=== PATIENT | female | born 1945 | race African-American/Black ===

== ENCOUNTER 2018-11-11 13:01 | Inpatient (IN) | payer MEDICARE, MEDICAID ==
[~2018-11-11] VITALS: Ht 162.6 cm; Wt 49.9 kg
[2018-11-11] VITALS (7 sets, daily range): BP systolic 119–139; BP diastolic 53–71
[2018-11-11] MEDS ORDERED: FERR325T6 PO (13:29)
[2018-11-11] MEDS ORDERED: ATORVASTATIN (13:29)
[2018-11-11] MEDS ORDERED: MEGESTROL (13:29)
[2018-11-11] MEDS ORDERED: FURO20TA4 PO (13:29)
[2018-11-11] MEDS ORDERED: MEMA5TAB15 PO (13:29)
[2018-11-11] MEDS ORDERED: CALC1CAP22 PO (13:29)
[2018-11-11] MEDS ORDERED: TRAM50TA PO (13:29)
[2018-11-11] MEDS ORDERED: MULT-1116 PO (13:29)
[2018-11-11] MEDS ORDERED: METF-815 PO (13:29)
[2018-11-11] MEDS ORDERED: ZOLP5TAB2 PO (13:29)
[2018-11-11] MEDS ORDERED: METO-396 PO (13:29)
[2018-11-11] MEDS ORDERED: POTA10CA42 PO (13:29)
[2018-11-11] MEDS ORDERED: RIVA20TA PO (13:29)
[2018-11-11 14:27] LABS: BASOPHILS % 0.7 % (0.0-2.0); EOSINOPHILS % 1.1 % (0.0-5.0); LYMPHOCYTES % 8.1 % (20.0-50.0); MEAN CORPUSCULAR VOLUME 60.5 fL (81.0-99.0); MEAN PLATELET VOLUME 7.6 fl (7.4-10.4); MONOCYTES % 7.4 % (2.0-8.0); NEUTROPHILS % 82.7 % (40.0-76.0); PLATELET 798 x1000/uL (130-400); RED BLOOD CELL COUNT 3.35 mill/uL (4.2-5.4); RED CELL DISTRIBUTION WIDTH 19.6 % (11.6-14.6)
[2018-11-11 14:32] LABS: HEMATOCRIT. 20.3 % (36.0-48.0)
[2018-11-11 14:33] LABS: CHLORIDE 100 mEq/L (98-107)
[2018-11-11 14:34] LABS: INR 1.1; PARTIAL THROMBOPLASTIN TIME 28.5 sec (23.4-31.0); PROTHROMBIN TIME 11.7 sec (9.6-11.0)
[2018-11-11] MEDS ORDERED: SODIUM CHLORIDE 0.9% 500 ML IV ONE (15:33)
[2018-11-11] MEDS ORDERED: INSULIN REGULAR (HUMULIN R) 300UNITS/3ML SUBCUT ONE (15:45)
[2018-11-11 15:48] LABS: CLARITY URINE TURBID (CLEAR); COLOR URINE YELLOW (YELLOW); KETONES URINE TRACE (NEGATIVE); LEUKOCYTE ESTERASE URINE 3+ (NEGATIVE); NITRITE URINE NEGATIVE (NEGATIVE); OCCULT BLOOD URINE 2+ (NEGATIVE); PROTEIN URINE 1+ (NEGATIVE); SPECIFIC GRAVITY URINE 1.023 (1.005-1.030)
[2018-11-11 15:48] LABS: PLATELET ESTIMATE INCREASED
[2018-11-11] MEDS ORDERED: HYDROMORPHONE HCL/PF 2MG/ML CPJ IV PRN (16:45)
[2018-11-11] MEDS ORDERED: CLONIDINE 0.1MG TABLET PO PRN (16:45)
[2018-11-11] MEDS ORDERED: DEXTROSE 50% WATER 50ML SYRINGE IV PRN (16:45)
[2018-11-11] MEDS ORDERED: DOCUSATE SODIUM 100MG CAPSULE PO PRN (16:45)
[2018-11-11] MEDS ORDERED: ONDANSETRON HCL 4MG/2ML INJ IV PRN (16:45)
[2018-11-11] MEDS ORDERED: ACETAMINOPHEN 325MG TABLET PO PRN (16:45)
[2018-11-11] MEDS: BLOOD SUGAR DIAGNOSTIC STRIP TEST SCH ×3 (17:00→20:29)
[2018-11-11 18:06] LABS: TOTAL IRON BINDING CAPACITY 290 ug/dL (250-450)
[2018-11-11] MEDS: INSULIN LISPRO 100 UNITS/ML SUBCUT SCH ×2 (18:33→20:59)
[2018-11-11] MEDS ORDERED: HYDR1.5C TP (20:08)
[2018-11-12] VITALS (7 sets, daily range): BP systolic 108–136; BP diastolic 56–80
[2018-11-12 01:19] LABS: BASOPHILS % 0.9 % (0.0-2.0); EOSINOPHILS % 3.8 % (0.0-5.0); HEMATOCRIT. 23.7 % (36.0-48.0); HEMOGLOBIN. 7.5 g/dL (12.0-16.0); LYMPHOCYTES % 15.4 % (20.0-50.0); MEAN CORPUSCULAR HEMOGLOBIN 21.1 pg (28.0-32.0); MEAN CORPUSCULAR VOLUME 66.5 fL (81.0-99.0); MEAN PLATELET VOLUME 7.5 fl (7.4-10.4); MONOCYTES % 10.1 % (2.0-8.0); NEUTROPHILS % 69.8 % (40.0-76.0); PLATELET 600 x1000/uL (130-400); RED BLOOD CELL COUNT 3.56 mill/uL (4.2-5.4); RED CELL DISTRIBUTION WIDTH 25.9 % (11.6-14.6)
[2018-11-12 01:52] LABS: INR 1.1; PROTHROMBIN TIME 11.2 sec (9.6-11.0)
[2018-11-12] MEDS: BLOOD SUGAR DIAGNOSTIC STRIP TEST SCH ×4 (06:50→21:16)
[2018-11-12] MEDS: INSULIN LISPRO 100 UNITS/ML SUBCUT SCH ×4 (08:30→21:22)
[2018-11-12 08:52] LABS: BASOPHILS % 1.1 % (0.0-2.0); EOSINOPHILS % 3.1 % (0.0-5.0); HEMATOCRIT. 22.5 % (36.0-48.0); HEMOGLOBIN. 7.2 g/dL (12.0-16.0); LYMPHOCYTES % 10.2 % (20.0-50.0); MEAN CORPUSCULAR HEMOGLOBIN 21.1 pg (28.0-32.0); MEAN CORPUSCULAR VOLUME 65.5 fL (81.0-99.0); MEAN PLATELET VOLUME 7.4 fl (7.4-10.4); MONOCYTES % 8.6 % (2.0-8.0); PLATELET 649 x1000/uL (130-400); RED BLOOD CELL COUNT 3.43 mill/uL (4.2-5.4); RED CELL DISTRIBUTION WIDTH 26.2 % (11.6-14.6)
[2018-11-12 08:56] LABS: CHLORIDE 106 mEq/L (98-107)
[2018-11-12 09:05] LABS: LDL CHOLESTEROL 54 mg/dL (5-100)
[2018-11-12 09:06] LABS: HDL CHOLESTEROL 43 mg/dL (40-59)
[2018-11-12] MEDS: MEMANTINE HCL 5MG TABLET PO SCH (09:39)
[2018-11-12] MEDS: METOPROLOL TARTRATE 25MG TABLET PO SCH ×2 (09:39→21:17)
[2018-11-12] MEDS: CALCIUM CARBONATE 1250MG TABLET (500MG ELEMENTAL CALCIUM) PO SCH (10:36)
[2018-11-12] MEDS: CEFTRIAXONE 1 G PREMIX 50 ML IV SCH (10:37)
[2018-11-12] MEDS: FERROUS SULFATE 325MG TABLET PO SCH ×2 (12:07→16:56)
[2018-11-12] MEDS ORDERED: BISACODYL 10MG SUPP PR NR (12:15)
[2018-11-12 14:49] LABS: FOLIC ACID (FOLATE) SERUM 13.9 ng/mL (>5.38)
[2018-11-12] MEDS: SORBITOL 70% SOLN 30ML PO SCH ×2 (16:08→18:26)
[2018-11-12] MEDS ORDERED: POTASSIUM CHLORIDE 20MEQ/PACKET PO NR (16:45)
[2018-11-12] MEDS: METFORMIN HCL 500MG TABLET PO SCH (16:55)
[2018-11-12] MEDS ORDERED: SORBITOL 70% SOLN 30ML PO SCH (20:00)
[2018-11-12 20:28] LABS: HEMATOCRIT 28.1 % (36.0-48.0); HEMOGLOBIN 8.9 g/dL (12.0-16.0)
[2018-11-12] MEDS: ATORVASTATIN CALCIUM 20MG TABLET PO SCH (21:16)
[2018-11-13] VITALS: BP_SYST 127; BP_SYST 128; BP_DIAS 60; BP_DIAS 73
[2018-11-13 04:00] VITALS: BP 127/73
[2018-11-13] MEDS ORDERED: SORBITOL 70% SOLN 30ML PO SCH (06:00)
[2018-11-13 07:04] LABS: PARTIAL THROMBOPLASTIN TIME 23.8 sec (23.4-31.0); PROTHROMBIN TIME 10.6 sec (9.6-11.0)
[2018-11-13 07:15] LABS: BASOPHILS % 0.8 % (0.0-2.0); EOSINOPHILS % 3.2 % (0.0-5.0); HEMATOCRIT. 28.9 % (36.0-48.0); HEMOGLOBIN. 8.9 g/dL (12.0-16.0); LYMPHOCYTES % 11.7 % (20.0-50.0); MEAN CORPUSCULAR HEMOGLOBIN 20.7 pg (28.0-32.0); MEAN CORPUSCULAR VOLUME 67.3 fL (81.0-99.0); MEAN PLATELET VOLUME 8.1 fl (7.4-10.4); MONOCYTES % 8.6 % (2.0-8.0); NEUTROPHILS % 75.7 % (40.0-76.0); PLATELET 762 x1000/uL (130-400); RED BLOOD CELL COUNT 4.29 mill/uL (4.2-5.4); RED CELL DISTRIBUTION WIDTH 26.8 % (11.6-14.6)
[2018-11-13] MEDS: BLOOD SUGAR DIAGNOSTIC STRIP TEST SCH ×4 (07:24→21:12)
[2018-11-13 07:25] LABS: CHLORIDE 111 mEq/L (98-107)
[2018-11-13 07:34] LABS: PHOSPHORUS 3.2 mg/dL (2.5-4.9)
[2018-11-13] MEDS: FERROUS SULFATE 325MG TABLET PO SCH ×3 (07:50→16:12)
[2018-11-13] MEDS: METFORMIN HCL 500MG TABLET PO SCH ×2 (07:50→16:12)
[2018-11-13 08:00] VITALS: BP 110/65
[2018-11-13] MEDS: DEXT 5%/0.45% NACL 1000ML 1,000 ML IV SCH (08:30)
[2018-11-13] MEDS: METOPROLOL TARTRATE 25MG TABLET PO SCH ×2 (08:31→21:11)
[2018-11-13] MEDS: CALCIUM CARBONATE 1250MG TABLET (500MG ELEMENTAL CALCIUM) PO SCH (08:32)
[2018-11-13] MEDS: MEMANTINE HCL 5MG TABLET PO SCH (08:32)
[2018-11-13] MEDS: CEFTRIAXONE 1 G PREMIX 50 ML IV SCH (08:32)
[2018-11-13] MEDS: INSULIN LISPRO 100 UNITS/ML SUBCUT SCH ×4 (08:33→21:22)
[2018-11-13] MEDS ORDERED: BISACODYL 10MG SUPP PR PRN (09:00)
[2018-11-13] MEDS ORDERED: BACTERIOSTATIC SODIUM CHLORIDE 0.9% 30ML VIAL IJ ONE (09:17)
[2018-11-13 12:00] VITALS: BP 121/66
[2018-11-13] MEDS ORDERED: MIDAZOLAM HCL 5 MG/5 ML VIAL ONE (14:33)
[2018-11-13] MEDS ORDERED: FENTANYL CITRATE/PF 50MCG/ML 2ML VIAL ONE (14:34)
[2018-11-13] MEDS ORDERED: SIMETHICONE 40 MG/0.6 ML 30ML ONE (14:36)
[2018-11-13] MEDS ORDERED: MIDAZOLAM HCL 5 MG/5 ML VIAL IV PRN (14:38)
[2018-11-13 20:00] VITALS: BP 113/57
[2018-11-13] MEDS: ATORVASTATIN CALCIUM 20MG TABLET PO SCH (21:11)
[2018-11-14] VITALS: BP 105/56
[2018-11-14] MEDS: DEXT 5%/0.45% NACL 1000ML 1,000 ML IV SCH (01:59)
[2018-11-14 04:00] VITALS: BP 124/60
[2018-11-14] MEDS: BLOOD SUGAR DIAGNOSTIC STRIP TEST SCH ×4 (06:25→21:02)
[2018-11-14 06:48] LABS: CHLORIDE 110 mEq/L (98-107)
[2018-11-14 06:54] LABS: BASOPHILS % 0.6 % (0.0-2.0); EOSINOPHILS % 4.4 % (0.0-5.0); HEMOGLOBIN. 8.1 g/dL (12.0-16.0); LYMPHOCYTES % 13.4 % (20.0-50.0); MEAN CORPUSCULAR HEMOGLOBIN 20.9 pg (28.0-32.0); MEAN CORPUSCULAR VOLUME 66.9 fL (81.0-99.0); MEAN PLATELET VOLUME 7.9 fl (7.4-10.4); MONOCYTES % 10.4 % (2.0-8.0); NEUTROPHILS % 71.2 % (40.0-76.0); PLATELET 655 x1000/uL (130-400); RED BLOOD CELL COUNT 3.88 mill/uL (4.2-5.4); RED CELL DISTRIBUTION WIDTH 26.9 % (11.6-14.6)
[2018-11-14 06:55] LABS: PHOSPHORUS 2.5 mg/dL (2.5-4.9)
[2018-11-14] MEDS: CALCIUM CARBONATE 1250MG TABLET (500MG ELEMENTAL CALCIUM) PO SCH (07:53)
[2018-11-14] MEDS: METFORMIN HCL 500MG TABLET PO SCH ×2 (07:54→18:10)
[2018-11-14] MEDS: FERROUS SULFATE 325MG TABLET PO SCH ×3 (07:54→18:14)
[2018-11-14] MEDS: INSULIN LISPRO 100 UNITS/ML SUBCUT SCH ×4 (07:55→21:17)
[2018-11-14 08:00] VITALS: BP 130/80
[2018-11-14] MEDS: MEMANTINE HCL 5MG TABLET PO SCH (08:01)
[2018-11-14] MEDS: METOPROLOL TARTRATE 25MG TABLET PO SCH ×2 (08:02→21:16)
[2018-11-14] MEDS ORDERED: POTASSIUM CHLORIDE 20MEQ/PACKET PO NR (11:00)
[2018-11-14] MEDS: CEFTRIAXONE 1 G PREMIX 50 ML IV SCH (11:12)
[2018-11-14] MEDS: ASCORBIC ACID 250 MG TABLET PO SCH ×2 (11:53→18:09)
[2018-11-14 12:00] VITALS: BP 112/58
[2018-11-14] MEDS ORDERED: MAGNESIUM 2 G PREMIX 50 ML IV SCH (13:00)
[2018-11-14 16:00] VITALS: BP 121/56
[2018-11-14 20:00] VITALS: BP 121/50
[2018-11-14] MEDS: ATORVASTATIN CALCIUM 20MG TABLET PO SCH (21:16)
[2018-11-15] VITALS (12 sets, daily range): BP systolic 102–153; BP diastolic 51–79
[2018-11-15 07:19] LABS: BASOPHILS % 0.7 % (0.0-2.0); EOSINOPHILS % 4.4 % (0.0-5.0); HEMATOCRIT. 25.3 % (36.0-48.0); HEMOGLOBIN. 7.8 g/dL (12.0-16.0); LYMPHOCYTES % 11.9 % (20.0-50.0); MEAN CORPUSCULAR HEMOGLOBIN 20.9 pg (28.0-32.0); MEAN CORPUSCULAR VOLUME 67.3 fL (81.0-99.0); MEAN PLATELET VOLUME 7.7 fl (7.4-10.4); MONOCYTES % 9.3 % (2.0-8.0); NEUTROPHILS % 73.7 % (40.0-76.0); PLATELET 581 x1000/uL (130-400); RED BLOOD CELL COUNT 3.75 mill/uL (4.2-5.4); RED CELL DISTRIBUTION WIDTH 27.7 % (11.6-14.6)
[2018-11-15] MEDS: BLOOD SUGAR DIAGNOSTIC STRIP TEST SCH ×4 (07:20→21:00)
[2018-11-15 07:26] LABS: CHLORIDE 109 mEq/L (98-107)
[2018-11-15 07:34] LABS: PHOSPHORUS 2.2 mg/dL (2.5-4.9)
[2018-11-15] MEDS: FERROUS SULFATE 325MG TABLET PO SCH ×3 (08:59→17:32)
[2018-11-15] MEDS: ASCORBIC ACID 250 MG TABLET PO SCH ×3 (09:00→17:47)
[2018-11-15] MEDS: CALCIUM CARBONATE 1250MG TABLET (500MG ELEMENTAL CALCIUM) PO SCH (09:00)
[2018-11-15] MEDS: METFORMIN HCL 500MG TABLET PO SCH ×2 (09:00→17:32)
[2018-11-15] MEDS: MEMANTINE HCL 5MG TABLET PO SCH (09:00)
[2018-11-15] MEDS: METOPROLOL TARTRATE 25MG TABLET PO SCH ×2 (09:00→20:11)
[2018-11-15] MEDS ORDERED: POTASSIUM PHOS,M-BASIC-D-BASIC 15 MMOL in DEXT 5% WATER 245 ML IV NR (09:00)
[2018-11-15] MEDS: INSULIN LISPRO 100 UNITS/ML SUBCUT SCH ×4 (09:01→22:05)
[2018-11-15] MEDS: CEFTRIAXONE 1 G PREMIX 50 ML IV SCH (14:34)
[2018-11-15] MEDS: ATORVASTATIN CALCIUM 20MG TABLET PO SCH (20:11)
[2018-11-15 21:54] LABS: BASOPHILS % 0.6 % (0.0-2.0); EOSINOPHILS % 3.7 % (0.0-5.0); HEMATOCRIT. 30.2 % (36.0-48.0); HEMOGLOBIN. 9.6 g/dL (12.0-16.0); LYMPHOCYTES % 9.2 % (20.0-50.0); MEAN CORPUSCULAR HEMOGLOBIN 22.6 pg (28.0-32.0); MEAN CORPUSCULAR VOLUME 70.9 fL (81.0-99.0); MEAN PLATELET VOLUME 7.8 fl (7.4-10.4); MONOCYTES % 9.2 % (2.0-8.0); NEUTROPHILS % 77.3 % (40.0-76.0); PLATELET 500 x1000/uL (130-400); RED BLOOD CELL COUNT 4.26 mill/uL (4.2-5.4); RED CELL DISTRIBUTION WIDTH 29.9 % (11.6-14.6)
[2018-11-15 21:59] LABS: INR 1.1; PROTHROMBIN TIME 10.9 sec (9.6-11.0)
[2018-11-16] VITALS: BP 139/62
[2018-11-16 04:00] VITALS: BP 128/69
[2018-11-16] MEDS: BLOOD SUGAR DIAGNOSTIC STRIP TEST SCH ×4 (07:20→21:00)
[2018-11-16 07:26] LABS: BASOPHILS % 0.7 % (0.0-2.0); EOSINOPHILS % 4.2 % (0.0-5.0); HEMOGLOBIN. 9.7 g/dL (12.0-16.0); LYMPHOCYTES % 11.8 % (20.0-50.0); MEAN CORPUSCULAR HEMOGLOBIN 22.8 pg (28.0-32.0); MEAN CORPUSCULAR VOLUME 70.7 fL (81.0-99.0); MEAN PLATELET VOLUME 7.8 fl (7.4-10.4); MONOCYTES % 8.4 % (2.0-8.0); NEUTROPHILS % 74.9 % (40.0-76.0); PLATELET 486 x1000/uL (130-400); RED BLOOD CELL COUNT 4.24 mill/uL (4.2-5.4); RED CELL DISTRIBUTION WIDTH 29.9 % (11.6-14.6)
[2018-11-16 07:48] LABS: CHLORIDE 107 mEq/L (98-107)
[2018-11-16 08:00] VITALS: BP 118/54
[2018-11-16] MEDS: METOPROLOL TARTRATE 25MG TABLET PO SCH ×2 (09:00→20:18)
[2018-11-16] MEDS: FERROUS SULFATE 325MG TABLET PO SCH ×3 (09:30→18:37)
[2018-11-16] MEDS: METFORMIN HCL 500MG TABLET PO SCH ×2 (09:30→18:37)
[2018-11-16] MEDS: CALCIUM CARBONATE 1250MG TABLET (500MG ELEMENTAL CALCIUM) PO SCH (09:30)
[2018-11-16] MEDS: MEMANTINE HCL 5MG TABLET PO SCH (09:30)
[2018-11-16] MEDS: CEFTRIAXONE 1 G PREMIX 50 ML IV SCH (09:30)
[2018-11-16] MEDS: ASCORBIC ACID 250 MG TABLET PO SCH ×3 (09:30→18:37)
[2018-11-16] MEDS: INSULIN LISPRO 100 UNITS/ML SUBCUT SCH ×4 (09:35→21:17)
[2018-11-16 12:20] VITALS: BP 112/64
[2018-11-16] MEDS: OMEPRAZOLE 20MG CAPSULE EXTENDED RELEASE PO SCH ×2 (14:20→20:18)
[2018-11-16 15:52] VITALS: BP 116/52
[2018-11-16 20:00] VITALS: BP 128/69
[2018-11-16] MEDS: ATORVASTATIN CALCIUM 20MG TABLET PO SCH (20:18)
[2018-11-17] VITALS: BP 137/74
[2018-11-17 04:00] VITALS: BP 123/61
[2018-11-17] MEDS: FERROUS SULFATE 325MG TABLET PO SCH (07:05)
[2018-11-17] MEDS: ASCORBIC ACID 250 MG TABLET PO SCH (07:06)
[2018-11-17] MEDS: OMEPRAZOLE 20MG CAPSULE EXTENDED RELEASE PO SCH (07:06)
[2018-11-17] MEDS: METFORMIN HCL 500MG TABLET PO SCH (07:06)
[2018-11-17] MEDS: BLOOD SUGAR DIAGNOSTIC STRIP TEST SCH (07:20)
[2018-11-17] MEDS: CALCIUM CARBONATE 1250MG TABLET (500MG ELEMENTAL CALCIUM) PO SCH (09:17)
[2018-11-17] MEDS: MEMANTINE HCL 5MG TABLET PO SCH (09:17)
[2018-11-17] MEDS: METOPROLOL TARTRATE 25MG TABLET PO SCH (09:17)
[2018-11-17] MEDS: INSULIN LISPRO 100 UNITS/ML SUBCUT SCH (09:18)
[2018-11-17 09:59] VITALS: BP 133/58
[2018-11-17 10:14] LABS: BASOPHILS % 0.6 % (0.0-2.0); EOSINOPHILS % 4.8 % (0.0-5.0); HEMATOCRIT. 32.5 % (36.0-48.0); HEMOGLOBIN. 10.4 g/dL (12.0-16.0); LYMPHOCYTES % 10.3 % (20.0-50.0); MEAN CORPUSCULAR HEMOGLOBIN 22.7 pg (28.0-32.0); MEAN CORPUSCULAR VOLUME 71.2 fL (81.0-99.0); MEAN PLATELET VOLUME 8.7 fl (7.4-10.4); MONOCYTES % 7.6 % (2.0-8.0); NEUTROPHILS % 76.7 % (40.0-76.0); PLATELET 391 x1000/uL (130-400); RED BLOOD CELL COUNT 4.56 mill/uL (4.2-5.4); RED CELL DISTRIBUTION WIDTH 29.4 % (11.6-14.6)
[2018-11-17 10:23] LABS: CHLORIDE 106 mEq/L (98-107)
[2018-11-17] MEDS: CEFTRIAXONE 1 G PREMIX 50 ML IV SCH (10:24)
== END 2018-11-17 11:55 | disposition home or self-care (01) | DRG 381 ==
LOC: ER 13:01 → 6EST 15:06 → EDBEDREQ 15:07 → ENRESERV 15:30
PROVIDERS: ADMIT Internal Medicine Nephrology; ATTEND Internal Medicine Nephrology
PROC: 30233N1 Transfusion of Nonautologous Red Blood Cells into Peripheral Vein, Percutaneous Approach (ICD-10-PCS; principal; 2018-11-11)
PROC: 0DJ08ZZ Inspection of Upper Intestinal Tract, Via Natural or Artificial Opening Endoscopic (ICD-10-PCS; 2018-11-13)
PROC: 0DJD8ZZ Inspection of Lower Intestinal Tract, Via Natural or Artificial Opening Endoscopic (ICD-10-PCS; 2018-11-13)
DX: K22.11 Ulcer of esophagus with bleeding (principal); E46 Unspecified protein-calorie malnutrition; N39.0 Urinary tract infection, site not specified; Z68.1 Body mass index [BMI] 19.9 or less, adult; D50.9 Iron deficiency anemia, unspecified; K57.31 Diverticulosis of large intestine without perforation or abscess with bleeding; E78.5 Hyperlipidemia, unspecified; B95.61 Methicillin susceptible Staphylococcus aureus infection as the cause of diseases classified elsewhere; E78.00 Pure hypercholesterolemia, unspecified; I48.91 Unspecified atrial fibrillation; E11.9 Type 2 diabetes mellitus without complications; I10 Essential (primary) hypertension; F03.90 Unspecified dementia, unspecified severity, without behavioral disturbance, psychotic disturbance, mood disturbance, and anxiety; I48.2 Chronic atrial fibrillation; Z79.01 Long term (current) use of anticoagulants; Z79.84 Long term (current) use of oral hypoglycemic drugs; Z79.899 Other long term (current) drug therapy; Z86.718 Personal history of other venous thrombosis and embolism
CPT/HCPCS: 36415; 71045; 80048; 80061; 80076; 82607; 82728; 82746; 82962; 83540; 83550; 83735; 83880; 84100; 84132; 84484; 85014; 85018; 85044; 85384; 86850; 86900; 86920; 93005; 93306; 93970; 96372; 97161; 97166; 97530; 99152; 99285; J0696; J1815; J2250; J3010; J3475; J3490; J7040; J7050; J7060; P9016; G0500